=== PATIENT | female | born 1935 | race Asian ===

== ENCOUNTER 2017-05-07 14:50 | Inpatient (IN) | payer MEDICARE, MEDICAID ==
[~2017-05-07] VITALS: Ht 154.9 cm; Wt 63.5 kg
[2017-05-07 15:20] VITALS: BP 127/79
[2017-05-07] MEDS ORDERED: Norco 7.5mg/325mg tab ORAL ONE (15:45)
--- NOTE | 2017-05-07 16:41 | Diagnostic Imaging Report ---
Indication: Pain Findings: 3 views of the left wrist were obtained. Severe comminuted fracture of the distal radius with impaction and intra-articular extension noted. Fracture of the distal ulna also demonstrated as well as fracture of the ulnar styloid. Soft tissue swelling is present. Impression: Acute fractures as discussed above
[2017-05-07] MEDS ORDERED: ceFAZolin 1gm/50ml Premix 50 ML IV ONE (16:45)
[2017-05-07] MEDS ORDERED: Morphine Sulfate 4mg/ml Inj IVP ONE ×3 (16:45→17:30)
[2017-05-07] MEDS ORDERED: ASPIR 8181 MG ORAL (17:10)
[2017-05-07] MEDS ORDERED: ceFAZolin 1gm in D5W 55ml IVPB ONE (17:30)
[2017-05-07] MEDS ORDERED: Lidocaine 1% Plain 30 ml INJ ONE (17:30)
[2017-05-07] MEDS ORDERED: LORazepam Inj 2mg/ml 1ml IV PRN (18:30)
[2017-05-07] MEDS ORDERED: Miralax 17gm pkt ORAL PRN (18:30)
[2017-05-07] MEDS ORDERED: Zolpidem 5mg tab ORAL PRN (18:30)
[2017-05-07] MEDS ORDERED: Mylanta II UD 30ml ORAL PRN (18:30)
[2017-05-07] MEDS ORDERED: Metoclopramide 10mg/2ml Inj IVP ONE (19:15)
[2017-05-07 19:33] LABS: PROTHROMBIN TIME 10.7 SEC (9.30-11.50)
--- NOTE | 2017-05-07 19:33 | Emergency Room Report ---
History of Present Illness General Chief Complaint: Upper Extremity Injury Source: Patient Present Illness HPI 82-year-old female presents to the emergency department complaining of left wrist pain 10/10 in severity, status post mechanical fall. Patient was starting to lose her balance as she sat down quickly and when she placed her left hand behind her to sit down she sustained injury pain and deformity to the left wrist. Patient also reports bleeding. Patient denies hitting her head she denies dyspnea she denies loss of consciousness. Patient has a history of high blood pressure. Denies numbness or tingling in the extremity. denies dizziness, CP, LOC, tenderness or bruises elsewhere. pt. denies palpitations. Son is accompanying pt. and states she is behaving and responding normally. no changes in behavior or mentation. Allergies: Coded Allergies: No Known Allergies (Unverified , 05/07/17) Patient History Past Medical History: see triage record Past Surgical History: none Pertinent Family History: none Last Menstrual Period: na Reviewed Nursing Documentation: PMH: Agreed, PSxH: Agreed Nursing Documentation-PMH Past Medical History: No History, Except For Hx Hypertension: Yes Review of Systems All Other Systems: negative except mentioned in HPI Physical Exam Vital Signs Date Time Temp Pulse Resp B/P (MAP) Pulse Ox O2 Delivery O2 Flow Rate FiO2 05/07/17 15:07 97.5 57 16 114/69 98 Room Air Sp02 EP Interpretation: reviewed, normal General Appearance: no apparent distress, alert, GCS 15, non-toxic Head: normocephalic, atraumatic Eyes: bilateral eye normal inspection, bilateral eye PERRL ENT: hearing grossly normal, normal voice Neck: full range of motion, no bony tend, supple/symm/no masses Respiratory: chest non-tender, lungs clear, normal breath sounds, speaking full sentences Cardiovascular #1: regular rate, rhythm, normal capillary refill Cardiovascular #2: 2+ radial (R), 2+ radial (L) Gastrointestinal: non tender, soft Rectal: deferred Musculoskeletal: back normal, gait/station normal, normal range of motion, tender - TTP with obvious deformity to the left wrist, pt. is NVI, laceration inline with deformity suspicious for open fracture. Neurologic: alert, oriented x3, responsive, motor strength/tone normal, sensory intact, normal gait, speech normal Skin: normal color, no rash, warm/dry, well hydrated, laceration - laceration to the left lateral wrist radiating to the volar aspect. approx 1.5 inches. Medical Decision Making PA Attestation Dr. Felix is my supervising Physician whom patient management has been discussed with. Diagnostic Impression: Primary Impression: Open wrist fracture Qualified Codes: S62.102B - Fracture of unspecified carpal bone, left wrist, initial encounter for open fracture Additional Impression: History of hypertension ER Course 82-year-old female presents to the emergency department complaining of left wrist pain 10/10 in severity, status post mechanical fall. Patient was starting to lose her balance as she sat down quickly and when she placed her left hand behind her to sit down she sustained injury pain and deformity to the left wrist. Patient also reports bleeding. Patient denies hitting her head she denies dyspnea she denies loss of consciousness. Patient has a history of high blood pressure. Denies numbness or tingling in the extremity. denies dizziness, CP, LOC, tenderness or bruises elsewhere. pt. denies palpitations. Son is accompanying pt. and states she is behaving and responding normally. no changes in behavior or mentation. Ddx considered but are not limited to Fracture, dislocation, contusion, Sprain/ Strain/Spasm, Epidural abscess, Neoplastic mets. Vital signs: are WNL, pt. is afebrile H&PE are most consistent with musculoskeletal injury will perform imaging to r/ o fractures/dislocations. ORDERS: - X-ray: Left wrist comminuted fractures of distal radius and ulna -EK NSR no acute ST changes , QT prolongation - Per Dr. Felix, interpretation scribed by LAURA Bhatt -CXR: lateral deviation of trachea in the middle, calcified and tortuous Aorta. -CBC: mild anemia -CMP: WNL -PT/PTT:WNL ED INTERVENTIONS: - [place] Po - IV access - 1 gram Ancef IV -IV morphine total of 4 -Zofran IV -Volar left wrist Splint applied by field technical assistant. Pt. remains neurovascularly intact. Dr. Puentes, (client application support specialist) was contacted and will do surgery on patient tomorrow, He requested that the patient be placed n.p.o. after midnight. DISPOSITION: at this time pt. will be admitted to Dr. Hays for Open wrist fracture Dr. Hays agreed to admit the pt. and to continue pt. care management. Labs Test 05/07/17 18:40 White Blood Count 10.0 K/UL (4.8-10.8) Red Blood Count 3.97 M/UL (4.20-5.40) Hemoglobin 11.9 G/DL (12.0-16.0) Hematocrit 38.6 % (37.0-47.0) Mean Corpuscular Volume 97 FL (80-99) Mean Corpuscular Hemoglobin 29.9 PG (27.0-31.0) Mean Corpuscular Hemoglobin Concent 30.7 G/DL (32.0-36.0) Red Cell Distribution Width 11.9 % (11.6-14.8) Platelet Count 161 K/UL (150-450) Mean Platelet Volume 8.1 FL (6.5-10.1) Neutrophils (%) (Auto) 81.5 % (45.0-75.0) Lymphocytes (%) (Auto) 14.2 % (20.0-45.0) Monocytes (%) (Auto) 3.7 % (1.0-10.0) Eosinophils (%) (Auto) 0.1 % (0.0-3.0) Basophils (%) (Auto) 0.5 % (0.0-2.0) Prothrombin Time 10.7 SEC (9.30-11.50) Prothromb Time International Ratio 1.0 (0.9-1.1) Activated Partial Thromboplast Time 23 SEC (23-33) Sodium Level 142 MMOL/L (136-145) Potassium Level 3.8 MMOL/L (3.5-5.1) Chloride Level 105 MMOL/L (98-107) Carbon Dioxide Level 27 MMOL/L (21-32) Anion Gap 10 mmol/L (5-15) Blood Urea Nitrogen 12 mg/dL (7-18) Creatinine 1.0 MG/DL (0.55-1.30) Estimat Glomerular Filtration Rate mL/min (>60) Glucose Level 180 MG/DL (74-106) Calcium Level 8.4 MG/DL (8.5-10.1) EKG Diagnostic Results EP Interpretation: Dr. Felix Rate: normal - 64 bpm Rhythm: NSR ST Segments: no acute changes Other Impression Scribed by LAURA BHATT ASA given to the pt in ED: No Chest X-Ray Diagnostic Results Chest X-Ray Diagnostic Results : Chest X-Ray Ordered: Yes # of Views/Limited/Complete: 1 View Indication: Other - Pre-op EP Interpretation: Yes PA Xray: Interpretation reviewed, by supervising MD, and agrees with findings. Interpretation: no consolidation, no effusion, no pneumothorax, other - lateral deviation of trachea in the middle, calcified and tortuous Aorta. Impression: No acute disease Electronically Signed by: Christnie Bhatt PA-C Last Vital Signs Date Time Temp Pulse Resp B/P (MAP) Pulse Ox O2 Delivery O2 Flow Rate FiO2 05/07/17 15:20 97.3 59 18 127/79 96 Room Air Disposition: ADMITTED INPATIENT Condition: Serious Referrals: NOT CHOSEN IPA/,REFERRING (PCP) Christine Bhatt May 07, 2017 19:33
[2017-05-07 20:19] VITALS: BP 147/72
--- NOTE | 2017-05-07 20:20 | History and Physical ---
History of Present Illness General Date patient seen: May 07, 2017 Time patient seen: 20:20 Reason for Hospitalization: Upper Extremity Injury Present Illness HPI 82y/o female with pmh of HTN, HLD who presents with L wrist pain s/p mechanical fall. Patient was starting to lose her balance as she sat down quickly and when she placed her left hand behind her to sit down she sustained injury w/ immediate pain and deformity to the left wrist. Patient also reports bleeding. Patient denies hitting her head or LOC. Denies chest pain, SOB, f/c, n/v, d/c , abd ford. Denies other injuries. Son is accompanying pt. and states she is behaving and responding normally. No changes in behavior or mentation. In ED, pt found to have L open distal radius and ulna fracture. Surgery consulted w/ plan for OR tomorrow. Allergies: Coded Allergies: No Known Allergies (Unverified , 05/07/17) Medication History Scheduled Aspirin* (Aspir 81*), 81 MG ORAL DAILY, (Reported) Patient History History Provided By: Patient, Family Member, Medical Record, EMS Healthcare decision maker Resuscitation status Advanced Directive on File Past Medical/Surgical History Past Medical/Surgical History: (1) HTN (hypertension) (2) HLD (hyperlipidemia) (3) L open distal radius and ulna fracture Family History Family History: Patient reports no known family medical history. Social History Social History: (1) No significant social history Review of Systems ROS Narrative CONSTITUTIONAL: No weight loss, fever, chills, weakness or fatigue. HEENT: Eyes: No visual loss, blurred vision, double vision or yellow sclerae. Ears, Nose, Throat: No hearing loss, sneezing, congestion, runny nose or sore throat. SKIN: No rash or itching. CARDIOVASCULAR: No chest pain, chest pressure or chest discomfort. No palpitations or edema. RESPIRATORY: No shortness of breath, cough or sputum. GASTROINTESTINAL: No anorexia, nausea, vomiting or diarrhea. No abdominal pain or blood. NEUROLOGICAL: No headache, dizziness, syncope, paralysis, ataxia, numbness or tingling in the extremities. No change in bowel or bladder control. MUSCULOSKELETAL: No muscle, back pain, joint pain or stiffness. HEMATOLOGIC: No anemia, bleeding or bruising. LYMPHATICS: No enlarged nodes. No history of splenectomy. PSYCHIATRIC: No history of depression or anxiety. ENDOCRINOLOGIC: No reports of sweating, cold or heat intolerance. No polyuria or polydipsia. ALLERGIES: No history of asthma, hives, eczema or rhinitis. Physical Exam Physical Exam Narrative General Appearance: no apparent distress, alert, GCS 15, non-toxic Head: normocephalic, atraumatic Eyes: bilateral eye normal inspection, bilateral eye PERRL ENT: hearing grossly normal, normal voice Neck: full range of motion, no bony tend, supple/symm/no masses Respiratory: chest non-tender, lungs clear, normal breath sounds, speaking full sentences Cardiovascular #1: regular rate, rhythm, normal capillary refill Cardiovascular #2: 2+ radial (R), 2+ radial (L) Gastrointestinal: non tender, soft Rectal: deferred Musculoskeletal: back normal, gait/station normal, normal range of motion, tender - TTP with obvious deformity to the left wrist, pt. is NVI, laceration inline with deformity suspicious for open fracture. Neurologic: alert, oriented x3, responsive, motor strength/tone normal, sensory intact, normal gait, speech normal Skin: normal color, no rash, warm/dry, well hydrated, laceration - laceration to the left lateral wrist radiating to the volar aspect. approx 1.5 inches. Last 24 Hour Vital Signs Date Time Temp Pulse Resp B/P (MAP) Pulse Ox O2 Delivery O2 Flow Rate FiO2 05/07/17 15:20 97.3 59 18 127/79 96 Room Air 05/07/17 15:07 97.5 57 16 114/69 98 Room Air Intake and Output 05/07/17 05/08/17 19:00 07:00 Intake Total 55 ml Balance 55 ml Intake IV Total 55 ml Laboratory Tests Test 05/07/17 18:40 Prothrombin Time 10.7 SEC (9.30-11.50) Prothromb Time International Ratio 1.0 (0.9-1.1) Activated Partial Thromboplast Time 23 SEC (23-33) Height (Feet): 5 Height (Inches): 1.00 Weight (Pounds): 125 Medications Current Medications Medications (Trade) Dose Ordered Sig/Damon Route PRN Reason Start Time Stop Time Status Last Admin Dose Admin Acetaminophen (Tylenol) 650 mg Q4H PRN ORAL fever 05/07/17 18:30 06/06/17 18:29 Al Hydroxide/Mg Hydroxide (Mylanta II) 30 ml Q6H PRN ORAL dyspepsia 05/07/17 18:30 06/06/17 18:29 Aspirin (Ecotrin) 81 mg DAILY ORAL 05/08/17 09:00 06/07/17 08:59 Cefazolin Sodium 50 ml @ 100 mls/hr Q8HR IV 05/08/17 06:00 05/15/17 05:59 UNV Dextrose (Dextrose 50%) STAT PRN IV Hypoglycemia 05/07/17 18:30 06/06/17 18:29 Lorazepam (Ativan 2mg/ml 1ml) 0.5 mg Q4H PRN IV For Anxiety 05/07/17 18:30 05/14/17 18:29 Ondansetron HCl (Zofran) 4 mg Q6H PRN IVP Nausea & Vomiting 05/07/17 18:30 06/06/17 18:29 Polyethylene Glycol (Miralax) 17 gm HSPRN PRN ORAL Constipation 05/07/17 18:30 06/06/17 18:29 Zolpidem Tartrate (Ambien) 5 mg HSPRN PRN ORAL Insomnia 05/07/17 18:30 05/14/17 18:29 Assessment/Plan Problem List: (1) s/p mechanical fall (2) L open distal radius and ulna fracture (3) HTN (hypertension) ICD Codes: I10 - Essential (primary) hypertension SNOMED: 46690168 (4) HLD (hyperlipidemia) ICD Codes: E78.5 - Hyperlipidemia, unspecified SNOMED: 65986720 Status: stable Assessment/Plan Admit inpt Ortho surgery consulted NPO at [place] for OR tomorrow for ORIF Empiric ancef Pain control, bowel regimen Supportive care Pt/family to bring in home med list Based on the patient's medical history, and other available ancillary data, the patient is a LOW risk for an INTERMEDIATE risk procedure. Per the most recent ACC/AHA guidelines, the patient does not need any further cardiopulmonary testing prior to the procedure and there do not appear to be any clear medical contraindications to proceeding with the proposed procedure. DVT Prophylaxis: SCD Code Status: Full Hospital Classification Declaration: Based on this initial evaluation, and depending on the patient's clinical course, I anticipate that this patient will require hospitalization for 2-3 days for surgical mgmt and close respiratory/ hemodynamic monitoring. Disposition: Once the patient is stable to leave the hospital, I anticipate the patient will likely be discharged to the following environment: home with HH vs SNF I spent 70 minutes on this patient's case, and 40 minutes were dedicated to counseling and/or care coordination. Discussed with patient/family, nursing staff, SW/CM, ortho regarding clinical status, treatment course, and disposition planning. Time of note may not reflect time of encounter. Lance Cyr M.D. May 07, 2017 20:20
[2017-05-07 20:32] LABS: BASOPHILS % (AUTO) 0.5 % (0.0-2.0); EOSINOPHILS % (AUTO) 0.1 % (0.0-3.0); LYMPHOCYTES % (AUTO) 14.2 % (20.0-45.0); MEAN CORPUSCULAR HEMOGLOBIN 29.9 PG (27.0-31.0); MEAN CORPUSCULAR HGB CONC 30.7 G/DL (32.0-36.0); MEAN CORPUSCULAR VOLUME 97 FL (80-99); MEAN PLATELET VOLUME 8.1 FL (6.5-10.1); MONOCYTES % (AUTO) 3.7 % (1.0-10.0); NEUTROPHILS % (AUTO) 81.5 % (45.0-75.0); PLATELET COUNT 161 K/UL (150-450); RED BLOOD COUNT 3.97 M/UL (4.20-5.40); RED CELL DISTRIBUTION WIDTH 11.9 % (11.6-14.8)
[2017-05-07 20:40] LABS: ANION GAP 10 mmol/L (5-15); CALCIUM 8.4 MG/DL (8.5-10.1); CARBON DIOXIDE 27 MMOL/L (21-32); CHLORIDE 105 MMOL/L (98-107); POTASSIUM 3.8 MMOL/L (3.5-5.1); SODIUM 142 MMOL/L (136-145)
[2017-05-07] MEDS: ceFAZolin 1gm in D5W 55ml IVPB SCH (23:08)
[2017-05-07 23:56] VITALS: BP 145/73
[2017-05-08] VITALS (12 sets, daily range): BP systolic 114–141; BP diastolic 55–100
[2017-05-08] MEDS: ceFAZolin 1gm in D5W 55ml IVPB SCH ×2 (05:28→14:00)
[2017-05-08] MEDS ORDERED: ceFAZolin 1gm/50ml Premix 50 ML IV SCH ×2 (06:00→22:00)
[2017-05-08 07:15] LABS: BASOPHILS % (AUTO) 0.4 % (0.0-2.0); LYMPHOCYTES % (AUTO) 12.2 % (20.0-45.0); MEAN CORPUSCULAR HEMOGLOBIN 29.9 PG (27.0-31.0); MEAN CORPUSCULAR HGB CONC 30.3 G/DL (32.0-36.0); MEAN CORPUSCULAR VOLUME 99 FL (80-99); MEAN PLATELET VOLUME 7.4 FL (6.5-10.1); MONOCYTES % (AUTO) 4.6 % (1.0-10.0); NEUTROPHILS % (AUTO) 82.8 % (45.0-75.0); PLATELET COUNT 139 K/UL (150-450); RED BLOOD COUNT 3.51 M/UL (4.20-5.40); RED CELL DISTRIBUTION WIDTH 11.8 % (11.6-14.8); WHITE BLOOD COUNT 9.4 K/UL (4.8-10.8)
[2017-05-08 07:45] LABS: ALANINE AMINOTRANSFERASE 20 U/L (12-78); ALBUMIN/GLOBULIN RATIO 1.1 (1.0-2.7); ANION GAP 9 mmol/L (5-15); ASPARTATE AMINO TRANSFERASE 22 U/L (15-37); CARBON DIOXIDE 28 MMOL/L (21-32); CHLORIDE 106 MMOL/L (98-107); CREATININE 0.7 MG/DL (0.55-1.30); POTASSIUM 4.2 MMOL/L (3.5-5.1); SODIUM 142 MMOL/L (136-145); TOTAL PROTEIN 6.7 G/DL (6.4-8.2)
[2017-05-08 07:50] LABS: CHOLESTEROL 160 MG/DL (< 200); CHOLESTEROL/HDL RATIO 2.4 (3.3-4.4)
[2017-05-08] MEDS: Aspirin EC 81mg tab ORAL SCH (09:32)
[2017-05-08] MEDS ORDERED: Norco 5mg/325mg tab ORAL PRN ×2 (10:00→14:15)
[2017-05-08] MEDS ORDERED: Norco 10mg/325mg tab ORAL PRN (10:00)
[2017-05-08] MEDS ORDERED: NeoSporin Gu Irrig 1ml Amp IRRIG ONE ×2 (10:47→17:33)
[2017-05-08] MEDS ORDERED: Bupivacaine 0.25% Inj 30ml INJ ONE (10:47)
[2017-05-08] MEDS ORDERED: Bacitracin 50000 Units Vial ONE ×2 (10:47→17:33)
--- NOTE | 2017-05-08 12:51 | Diagnostic Imaging Report ---
Indication: Dyspnea Comparison: None A single view chest radiograph was obtained. Findings: No definite infiltrate or pulmonary vascular congestion identified. The heart is enlarged. The aorta is mildly enlarged consistent with atherosclerotic vascular disease. The bones are osteopenic. Impression: No acute disease
[2017-05-08] MEDS ORDERED: Ropivacaine 5mg/ml Vial 30ml INJ ONE (13:48)
[2017-05-08] MEDS ORDERED: LR 1000ml 1,000 ML IVLG SCH (14:05)
--- NOTE | 2017-05-08 14:11 | Anethesia Preoperative Eval ---
Anesthesia Pre-op PMH/ROS General Date of Evaluation: May 08, 2017 Time of Evaluation: 14:26 Anesthesiologist: Cassandra ASA Score: ASA 3 Mallampati Score Class I : Soft palate, uvula, fauces, pillars visible Class II: Soft palate, uvula, fauces visible Class III: Soft palate, base of uvula visible Class IV: Only hard plate visible Mallampati Classification: Class II Surgeon: Dhaval Diagnosis: L Wrist Fx Surgical Procedure: L Disal Radius/Ulnar ORIF Anesthesia History: none Family History: no anesthesia problems Allergies: Coded Allergies: No Known Allergies (Unverified , 05/07/17) Medications: see eMAR Past Medical History Cardiovascular: Reports: HTN, other - HL Hematology/Immune: Reports: anemia Anesthesia Pre-op Phys. Exam Physician Exam Last Vital Signs Date Time Temp Pulse Resp B/P (MAP) Pulse Ox O2 Delivery O2 Flow Rate FiO2 05/08/17 12:06 98.3 60 19 123/100 97 Room Air Constitutional: NAD Neurologic: CN 2-12 intact Cardiovascular: RRR Respiratory: CTA Gastrointestinal: S/NT/ND Airway Exam Mallampati Score: Class II MO: limited ROM: limited Teeth: intact Anesthesia Pre-op A/P Labs Hematology Test 05/07/17 18:40 05/08/17 05:40 White Blood Count 10.0 K/UL (4.8-10.8) 9.4 K/UL (4.8-10.8) Red Blood Count 3.97 M/UL (4.20-5.40) L 3.51 M/UL (4.20-5.40) L Hemoglobin 11.9 G/DL (12.0-16.0) L 10.5 G/DL (12.0-16.0) L Hematocrit 38.6 % (37.0-47.0) 34.6 % (37.0-47.0) L Mean Corpuscular Volume 97 FL (80-99) 99 FL (80-99) Mean Corpuscular Hemoglobin 29.9 PG (27.0-31.0) 29.9 PG (27.0-31.0) Mean Corpuscular Hemoglobin Concent 30.7 G/DL (32.0-36.0) L 30.3 G/DL (32.0-36.0) L Red Cell Distribution Width 11.9 % (11.6-14.8) 11.8 % (11.6-14.8) Platelet Count 161 K/UL (150-450) 139 K/UL (150-450) L Mean Platelet Volume 8.1 FL (6.5-10.1) 7.4 FL (6.5-10.1) Neutrophils (%) (Auto) 81.5 % (45.0-75.0) H 82.8 % (45.0-75.0) H Lymphocytes (%) (Auto) 14.2 % (20.0-45.0) L 12.2 % (20.0-45.0) L Monocytes (%) (Auto) 3.7 % (1.0-10.0) 4.6 % (1.0-10.0) Eosinophils (%) (Auto) 0.1 % (0.0-3.0) 0.0 % (0.0-3.0) Basophils (%) (Auto) 0.5 % (0.0-2.0) 0.4 % (0.0-2.0) Coagulation Test 05/07/17 18:40 Prothrombin Time 10.7 SEC (9.30-11.50) Prothromb Time International Ratio 1.0 (0.9-1.1) Activated Partial Thromboplast Time 23 SEC (23-33) Chemistry Test 05/07/17 18:40 05/08/17 05:40 Sodium Level 142 MMOL/L (136-145) 142 MMOL/L (136-145) Potassium Level 3.8 MMOL/L (3.5-5.1) 4.2 MMOL/L (3.5-5.1) Chloride Level 105 MMOL/L (98-107) 106 MMOL/L (98-107) Carbon Dioxide Level 27 MMOL/L (21-32) 28 MMOL/L (21-32) Anion Gap 10 mmol/L (5-15) 9 mmol/L (5-15) Blood Urea Nitrogen 12 mg/dL (7-18) 14 mg/dL (7-18) Creatinine 1.0 MG/DL (0.55-1.30) 0.7 MG/DL (0.55-1.30) Estimat Glomerular Filtration Rate mL/min (>60) mL/min (>60) Glucose Level 180 MG/DL (74-106) H 132 MG/DL (74-106) H Calcium Level 8.4 MG/DL (8.5-10.1) L 8.0 MG/DL (8.5-10.1) L Total Bilirubin 0.5 MG/DL (0.2-1.0) Aspartate Amino Transf (AST/SGOT) 22 U/L (15-37) Alanine Aminotransferase (ALT/SGPT) 20 U/L (12-78) Alkaline Phosphatase 68 U/L (46-116) Total Protein 6.7 G/DL (6.4-8.2) Albumin 3.5 G/DL (3.4-5.0) Globulin 3.2 g/dL Albumin/Globulin Ratio 1.1 (1.0-2.7) Triglycerides Level 25 MG/DL (0-200) Cholesterol Level 160 MG/DL (< 200) LDL Cholesterol 89 mg/dL (<100) HDL Cholesterol 68 MG/DL (40-60) H Cholesterol/HDL Ratio 2.4 (3.3-4.4) L Thyroid Stimulating Hormone (TSH) 0.950 uiU/mL (0.360-3.740) Risk Assessment & Plan Assessment: ASA 3 Plan: GA, BIS, L Supraclavicular Block Status Change Before Surgery: No Pre-Antibiotics Dru Gram Ancef IV Given Within 1 Hr of Incision: Yes Time Given: 14:48 Gilberto Trujillo MD May 08, 2017 14:11
--- NOTE | 2017-05-08 14:12 | Immediate Post-Op Evaluation ---
Immediate Post-Op Evalulation Immediate Post-Op Evalulation Procedure: L Disal Radius/Ulnar ORIF Date of Evaluation: May 08, 2017 Time of Evaluation: 17:45 IV Fluids: 800 LR Blood Products: 0 Estimated Blood Loss: 50 Urinary Output: 0 Blood Pressure Systolic: 131 Blood Pressure Diastolic: 58 Pulse Rate: 60 Respiratory Rate: 16 O2 Sat by Pulse Oximetry: 100 Temperature (Fahrenheit): 97.4 Pain Score (1-10): 2 Nausea: No Vomiting: No Complications 0 Patient Status: awake, reacts, patent, extubated, none Hydration Status: adequate Dru Gram Ancef IV Given Within 1 Hr of Incision: Yes Time Given: 14:48 Gilberto Trujillo MD May 08, 2017 14:12
[2017-05-08] MEDS ORDERED: oxyCODONE HCL/Acetaminophen 5/325mg ORAL PRN (14:15)
[2017-05-08] MEDS ORDERED: Norco 7.5mg/325mg tab ORAL PRN (14:15)
[2017-05-08] MEDS ORDERED: Hydromorphone 0.5mg/0.5ml inj IVP PRN (14:15)
[2017-05-08] MEDS ORDERED: LORazepam Inj 2mg/ml 1ml IV PRN (14:15)
[2017-05-08] MEDS ORDERED: Ketorolac 30mg Inj IV PRN (14:15)
[2017-05-08] MEDS ORDERED: Midazolam 2mg/2ml Inj IVP PRN ×2 (14:15→19:00)
[2017-05-08] MEDS ORDERED: fentaNYL 100 mcg/2 mL IV PRN (14:15)
[2017-05-08] MEDS ORDERED: Atropine Inj 1mg/10ml Syr IV PRN (14:15)
[2017-05-08] MEDS ORDERED: DiphenhydrAMINE 50mg/ml Inj IVP PRN (14:15)
[2017-05-08] MEDS ORDERED: Metoclopramide 10mg/2ml Inj IVP PRN (14:15)
[2017-05-08] MEDS ORDERED: Ketorolac 60mg Inj IM PRN (14:15)
[2017-05-08] MEDS ORDERED: Lidocaine 1% MPF 10mg/ml 5ml ONE (14:26)
[2017-05-08] MEDS ORDERED: Propofol 200mg/20ml IV ONE (14:26)
[2017-05-08] MEDS ORDERED: Glycopyrrolate 0.2mg/ml 1ml Vial ONE (14:26)
[2017-05-08] MEDS ORDERED: Metoprolol 5mg/5ml Inj ONE (14:26)
[2017-05-08] MEDS ORDERED: Midazolam 2mg/2ml Inj ONE (14:26)
[2017-05-08] MEDS ORDERED: NS Irrig 2000ml IRRIG ONE (14:30)
[2017-05-08] MEDS ORDERED: fentaNYL 100 mcg/2 mL IV ONE (14:30)
--- NOTE | 2017-05-08 17:30 | Pre-Procedure Note/Attestation ---
Pre-Procedure Note/Attestation Complete Prior to Procedure Planned Procedure: left Procedure Narrative: Distal radius and ulna ORIF with I and D Indications for Procedure Pre-Operative Diagnosis: Left Grade 1 Open distal radius and ulna fracture Attestation I attest that I discussed the nature of the procedure; its benefits; risks and complications; and alternatives (and the risks and benefits of such alternatives ), prior to the procedure, with the patient (or the patient's legal sales account representative). I attest that, if there was a reasonable possibility of needing a blood transfusion, the patient (or the patient's legal sales account representative) was given the [place] [employer] standardized written summary, pursuant to the Demond Armando Blood Safety Act ([place] Health and Safety Code # 1645, as amended). I attest that I re-evaluated the patient just prior to the surgery and that there has been no change in the patient's H&P, except as documented below: THADDEUS GRANADOS May 08, 2017 17:30
--- NOTE | 2017-05-08 17:31 | Brief Operative Note ---
Immediate Post Operative Note Operative Note Pre-op Diagnosis: Left Grade 1 Open distal radius and ulna fracture Procedure: Left distal radius and ulna I and D with ORIF Post-op Diagnosis: same as pre-op Findings: consistent w/pre-op dx studies Surgeon: Dhaval Anesthesiologist: Cassandra Anesthesia: general, regional Specimen: none Complications: none Condition: stable Fluids: 100 ml Estimated Blood Loss: minimal Drains: none Tourniquet time: 92 - min Implant(s) used?: Yes THADDEUS GRANADOS May 08, 2017 17:31
[2017-05-08] MEDS: LR 1000ml 1,000 ML IV SCH (19:49)
--- NOTE | 2017-05-08 21:36 | General Progress Note ---
Assessment/Plan Problem List: (1) s/p mechanical fall (2) L open distal radius and ulna fracture (3) HTN (hypertension) ICD Codes: I10 - Essential (primary) hypertension SNOMED: 22715496 (4) HLD (hyperlipidemia) ICD Codes: E78.5 - Hyperlipidemia, unspecified SNOMED: 48256283 Status: stable Assessment/Plan Admit inpt Ortho surgery consulted Empiric ancef s/p Left distal radius and ulna I&D with ORIF on 05/08/17 Post operative recommendations include: - encourage mobilization/ambulation - encourage incentive spirometry to optimize pulmonary hygiene - DVT/GI prophylaxis as appropriate - ctm CBC and hemodynamics - ctm electrolytes, adjust/replete prn - PT/OT - pain control, supportive care, bowel regimen Pt/family to bring in home med list DVT Prophylaxis: SCD Code Status: Full Hospital Classification Declaration: Based on this initial evaluation, and depending on the patient's clinical course, I anticipate that this patient will require hospitalization for 2-3 days for surgical mgmt and close respiratory/ hemodynamic monitoring. Disposition: Once the patient is stable to leave the hospital, I anticipate the patient will likely be discharged to the following environment: home with vs SNF I spent 42 minutes on this patient's case, and 24 minutes were dedicated to counseling and/or care coordination. Discussed with patient/family, nursing staff, SW/CM, ortho regarding clinical status, treatment course, and disposition planning. Time of note may not reflect time of encounter. Subjective Date patient seen: May 08, 2017 Time patient seen: 18:00 ROS Limited/Unobtainable: No Constitutional: Reports: no symptoms HEENT: Reports: no symptoms Cardiovascular: Reports: no symptoms Respiratory: Reports: no symptoms Gastrointestinal/Abdominal: Reports: no symptoms Genitourinary: Reports: no symptoms Neurologic/Psychiatric: Reports: no symptoms Endocrine: Reports: no symptoms Hematologic/Lymphatic: Reports: no symptoms Allergies: Coded Allergies: No Known Allergies (Unverified , 05/07/17) All Systems: reviewed and negative except above Subjective No acute o/n events s/p Left distal radius and ulna I&D with ORIF today POD#1 Pain controlled. Denies f/c, n/v, d/c, chest pain, SOB Objective Last 24 Hour Vital Signs Date Time Temp Pulse Resp B/P (MAP) Pulse Ox O2 Delivery O2 Flow Rate FiO2 11/9/17 20:00 97.6 60 18 114/55 100 Room Air 05/08/17 18:28 97.0 59 15 140/62 100 Nasal Cannula 3.0 05/08/17 18:20 59 16 141/62 100 Nasal Cannula 3.0 05/08/17 18:10 58 13 140/62 100 Nasal Cannula 3.0 05/08/17 18:00 58 12 135/64 100 Nasal Cannula 3.0 05/08/17 17:55 59 12 137/66 99 Simple Mask 6.0 05/08/17 17:50 58 13 131/63 100 Simple Mask 6.0 05/08/17 17:42 61 15 137/63 100 Simple Mask 6.0 05/08/17 17:34 97.4 66 19 131/58 100 Simple Mask 6.0 05/08/17 17:33 60 16 100 05/08/17 12:06 98.3 60 19 123/100 97 Room Air 05/08/17 08:50 98.1 68 19 129/72 97 Room Air 05/08/17 04:00 98.2 60 18 131/68 96 Room Air 05/07/17 23:56 97.7 64 16 145/73 98 Room Air Intake and Output 05/08/17 05/09/17 19:00 07:00 Intake Total 1000 ml Output Total 20 ml Balance 980 ml Intake IV Total 1000 ml Output Estimated Blood Loss 20 ml Laboratory Tests 05/08/17 05:40: White Blood Count 9.4, Red Blood Count 3.51L, Hemoglobin 10.5L, Hematocrit 34.6L , Mean Corpuscular Volume 99, Mean Corpuscular Hemoglobin 29.9, Mean Corpuscular Hemoglobin Concent 30.3L, Red Cell Distribution Width 11.8, Platelet Count 139L, Mean Platelet Volume 7.4, Neutrophils (%) (Auto) 82.8H, Lymphocytes (%) (Auto) 12.2L, Monocytes (%) (Auto) 4.6, Eosinophils (%) (Auto) 0.0, Basophils (%) (Auto) 0.4, Sodium Level 142, Potassium Level 4.2, Chloride Level 106, Carbon Dioxide Level 28, Anion Gap 9, Blood Urea Nitrogen 14, Creatinine 0.7, Estimat Glomerular Filtration Rate , Glucose Level 132H, Calcium Level 8.0L, Total Bilirubin 0.5, Aspartate Amino Transf (AST/SGOT) 22, Alanine Aminotransferase (ALT/SGPT) 20, Alkaline Phosphatase 68, Total Protein 6.7, Albumin 3.5, Globulin 3.2, Albumin/Globulin Ratio 1.1, Triglycerides Level 25, Cholesterol Level 160, LDL Cholesterol 89, HDL Cholesterol 68H, Cholesterol/ HDL Ratio 2.4L, Thyroid Stimulating Hormone (TSH) 0.950 Height (Feet): 5 Height (Inches): 1.00 Weight (Pounds): 140 Objective General: alert, cooperative, no distress, appears stated age Head: normocephalic, without obvious abnormality, atraumatic Eyes: conjunctivae/corneas clear. PERRL, EOM's intact Throat: lips, mucosa, and tongue normal. MMM Neck: supple, symmetrical, trachea midline, and no JVD Lungs: clear to auscultation bilaterally Heart: regular rate and rhythm, S1, S2 normal, no murmur, click, rub or gallop Abdomen: soft, non-tender, non-distended, bowel sounds normal; no masses or organomegaly Extremities: Dressing c/d/i Pulses: 2+ and symmetric Skin: skin color, texture, turgor normal; no rashes or lesions Neurologic: grossly normal, no focal deficits Lance Cyr M.D. May 08, 2017 21:36
[2017-05-08] MEDS: ceFAZolin 1gm in D5W 55ml IVP SCH (22:04)
--- NOTE | 2017-05-08 23:00 | Consultation ---
DATE OF CONSULTATION: 05/08/2017 ORTHOPEDIC CONSULTATION CONSULTING PHYSICIAN: Sohail Puentes M.D. REQUESTING PHYSICIAN: Richa Hays M.D. DIAGNOSIS: Left distal grade 1 open highly comminuted displaced ulna and radius fracture. HISTORY OF PRESENT ILLNESS: The patient is a French speaking 82-year-old [id number] woman, whose history and examination was performed with the assistance of her son, Moshe. She fell today and had no loss of consciousness and sustained the above isolated injury. She has had previous back surgery. She has no known drug allergies. She has a history of hypertension. REVIEW OF SYSTEMS: Fourteen point review of systems is negative. PHYSICAL EXAMINATION: EXTREMITIES: Left upper extremity splinted and protected. Distal neurovascular examination to gross movement of the left upper extremity is intact. She has no elbow or shoulder pain or tenderness. DIAGNOSTIC DATA: Radiographs reveal an extremely comminuted, highly displaced, intraarticular, foreshortened, and angulated distal radius and ulnar fracture. ASSESSMENT AND PLAN: The patient has a reported open wound associated with the fracture. I have recommended irrigation and debridement along with open reduction and internal fixation. She and her son understand that the degree of comminution and intraarticular extension renders anatomic latter-day exceptionally difficult. We will proceed to the operating room when available. Sohail Puentes M.D. DR: Maral JOB#: [id number] CC: CHARY
[2017-05-09] VITALS: BP 129/60
--- NOTE | 2017-05-09 01:45 | Operative Note - Dictated ---
DATE OF OPERATION: 05/08/2017 SURGEON: Sohail Puentes M.D. BOILER TUBE REAMER: None. ANESTHESIA: Regional plus general. COMPLICATIONS: None. ANTIBIOTICS: Ancef. PREOPERATIVE DIAGNOSES: Left grade 1 open distal radius and ulnar fracture with an exceptional degree of comminution, displacement, and intra-articular involvement. POSTOPERATIVE DIAGNOSES: Left grade 1 open distal radius and ulnar fracture with an exceptional degree of comminution, displacement, and intra-articular involvement. PROCEDURE PERFORMED: 1. Left distal radius/ulnar irrigation and debridement with 3 liters of antibiotic impregnated saline wash. 2. Left distal ulnar open reduction and internal fixation using a multi-hole [place] plate from [employer] with both locking and nonlocking screws. 3. Open reduction and internal fixation of distal ulnar shaft fracture using a 4 hole 1/3rd tubular small fragment [employer] plate. 4. Left short arm splinting. BACKGROUND HISTORY: The patient is an 82-year-old woman who sustained a grade 1 open left distal radius and ulnar fracture. All risks, benefits, and alternatives to surgical intervention were discussed in great detail. Risks included, but were not limited to, bleeding, infection, neurovascular injury, need for additional surgical intervention, failure of pain relief, arthrofibrosis, complications of anesthesia, blood clots, stroke, heart attack, and potentially . She understood these risks, amongst others, and consent was signed. PROCEDURE IN DETAIL: The patient was brought into the operating room, placed supine on the operating room table. The left upper extremity was correctly verified for surgical site and prepped and draped in standard sterile fashion. Examination revealed 2 small punctate wounds from the inside out measuring 2 mm at the level of the ulnar fracture. It was therefore determined to be a grade 1 open fracture. Using fluoroscopy, reduction was attempted and could not be made anatomic because of the exceptional degree of comminution. It was made as closely anatomic as possible. Attention was first directed to the distal radius where the distal aspect of Raulito's approach was utilized. Tourniquet was insufflated to 250 mmHg above atmospheric pressure for a period of 92 minutes after Esmarch exsanguination. Dissection was carried down to bone with great care taken to protect neurovascular structures. The fracture was readily identified and highly comminuted. Using appropriate traction and estimation of appropriate inclination, height, and tilt, the distal radius plate was secured into position with locking and nonlocking screws. Copious irrigation was utilized and attention was turned to the ulna. Through a separate incision, the distal ulnar shaft fracture was identified and cleared of hematoma. A 4 hole Glenn 1/3rd tubular plate was secured over the fracture site. Only 2 cortices could be purchased distal to the fracture because of the comminution and how distal the fracture pattern was. Copious irrigation and pulsatile lavage was used with 3 liters of antibiotic impregnated fluid through the open wound and through the distal radius wound and distal ulnar wound. Soft tissues were reapproximated using 0 Vicryl, 2-0 Vicryl, and 3-0 nylon. Dry sterile dressing was applied. A short-arm splint was fashioned and secured into position. The sling was fitted and she was transferred to recovery after tolerating the procedure well. I attest I performed the entire operation. All needle and sponge counts were correct twice. Sohail Puentes M.D. DR: BROOKS JOB#: [id number] CC: CHARY
[2017-05-09 04:00] VITALS: BP 134/60
[2017-05-09] MEDS: ceFAZolin 1gm in D5W 55ml IVP SCH ×3 (05:34→21:22)
[2017-05-09 08:00] VITALS: BP 122/72
[2017-05-09] MEDS: Aspirin EC 81mg tab ORAL SCH (08:13)
[2017-05-09] MEDS: LR 1000ml 1,000 ML IV SCH (08:16)
[2017-05-09] MEDS ORDERED: Tubing IV Secondary IV ONE (11:09)
[2017-05-09] MEDS ORDERED: NS 275ml ONE (11:09)
[2017-05-09] MEDS ORDERED: FUROSEMIDE40 MG ORAL (11:27)
[2017-05-09] MEDS ORDERED: DONEPEZIL HCL5 M2 ORAL (11:27)
[2017-05-09] MEDS ORDERED: ATORVASTATIN CA20 MG ORAL (11:27)
[2017-05-09] MEDS ORDERED: CREON DR 24,001 EACH PO (11:27)
[2017-05-09] MEDS ORDERED: POTASSIUM CHLO20 ME1 ORAL (11:27)
[2017-05-09] MEDS ORDERED: AMLODIPINE BESYL5 MG ORAL (11:27)
[2017-05-09] MEDS ORDERED: CALCITRIOL1 MCG/1 ML PO (11:27)
[2017-05-09 12:00] VITALS: BP 133/57
--- NOTE | 2017-05-09 12:37 | Cardiology Report ---
APPROVED REPORT EXAM: Two-dimensional and M-mode echocardiogram with Doppler and color Doppler. INDICATION Pre-Op M-Mode DIMENSIONS IVSd1.4 (0.7-1.1cm)Left Atrium (MM)4.5 (1.6-4.0cm) LVDd4.8 (3.5-5.6cm)Aortic Root3.2 (2.0-3.7cm) PWd1.2 (0.7-1.1cm)Aortic Cusp Exc.1.5 (1.5-2.0cm) LVDs2.1 (2.5-4.0cm) PWs2.9 cm Normal left ventricular chamber size, systolic function and wall motion. Left ventricular ejection fraction estimated to be 60-65%. Mild left ventricular hypertrophy. No evidence of pericardial effusion. Left and right atrial sizes at upper limits of normal. Right ventricular chamber size is within normal limits. Focal aortic valve sclerosis with adequate cusp excursion. Thickened mitral valve leaflets with normal excursion. Mitral annulus and aortic root calcification. Pulmonic valve not well visualized. Normal tricuspid valve structure. IVC at normal size and collapsing with respiration. A color flow and spectral Doppler study was performed and revealed: No aortic insufficiency. Mild mitral regurgitation. Mitral diastolic velocities suggest reduced left ventricular relaxation c/w mild LV diastolic dysfunction (Grade I). Trace tricuspid regurgitation. Tricuspid systolic velocities suggests peak right ventricular systolic pressure of 28 mmHg, consistent with mild pulmonary hypertension. No pulmonic regurgitation present.
--- NOTE | 2017-05-09 12:56 | Cardiac Electrophysiology PN ---
Subjective Subjective Dictated [id number] Objective Last 24 Hour Vital Signs Date Time Temp Pulse Resp B/P (MAP) Pulse Ox O2 Delivery O2 Flow Rate FiO2 05/09/17 12:00 97.0 59 20 133/57 97 Room Air 05/09/17 08:00 97.6 58 18 122/72 96 Room Air 05/09/17 04:00 97.3 56 18 134/60 97 Room Air 05/09/17 00:00 97.3 59 18 129/60 99 Room Air 05/08/17 20:00 97.6 60 18 114/55 100 Room Air 05/08/17 18:28 97.0 59 15 140/62 100 Nasal Cannula 3.0 05/08/17 18:20 59 16 141/62 100 Nasal Cannula 3.0 05/08/17 18:10 58 13 140/62 100 Nasal Cannula 3.0 05/08/17 18:00 58 12 135/64 100 Nasal Cannula 3.0 05/08/17 17:55 59 12 137/66 99 Simple Mask 6.0 05/08/17 17:50 58 13 131/63 100 Simple Mask 6.0 05/08/17 17:42 61 15 137/63 100 Simple Mask 6.0 05/08/17 17:34 97.4 66 19 131/58 100 Simple Mask 6.0 05/08/17 17:33 60 16 100 Intake and Output 05/09/17 05/10/17 19:00 07:00 Intake Total 465 ml Balance 465 ml Intake Oral 240 ml IV Total 225 ml # Voids 1 VISHAL GUZMAN May 09, 2017 12:56
--- NOTE | 2017-05-09 13:24 | 48 Hour Post Anesthesia Eval ---
Post Anesthesia Evaluation Procedure: L Disal Radius/Ulnar ORIF Date of Evaluation: May 09, 2017 Time of Evaluation: 13:22 Blood Pressure Systolic: 129 0: 74 Pulse Rate: 66 Respiratory Rate: 20 Temperature (Fahrenheit): 97.6 O2 Sat by Pulse Oximetry: 99 Airway: patent Nausea: No Vomiting: No Pain Intensity: 2 Hydration Status: adequate Cardiopulmonary Status: stable Mental Status/LOC: patient returned to baseline Follow-up Care/Observations: n/a Post-Anesthesia Complications: none Follow-up care needed: N/A ALLA LYNNE M.D. May 09, 2017 13:23
--- NOTE | 2017-05-09 13:41 | Diagnostic Imaging Report ---
Indication: Acute fractures Findings: Several fluoroscopic views of the left wrist were obtained. Intraoperative images showing reduction of a distal radius abnormal fracture with a lateral ulnar plate and screws and a T. plate in the distal radius. Impression: Intraoperative imaging
--- NOTE | 2017-05-09 14:07 | Diagnostic Imaging Report ---
APPROVED REPORT CPT Code: 49953 Present Symptoms Comments: R/O DVT BILATERAL: Imaging reveals a patent deep venous system bilaterally. There is no evidence of thrombus within the femoral, popliteal or tibial segments. The greater saphenous veins are also within normal limits. Doppler indicates normal spontaneous flow within these segments.
[2017-05-09] MEDS: Donepezil 5mg Tab ORAL SCH (14:37)
[2017-05-09 16:00] VITALS: BP 133/60
[2017-05-09 20:14] VITALS: BP 138/65
[2017-05-10] VITALS: BP 130/62
--- NOTE | 2017-05-10 00:45 | Consultation ---
DATE OF CONSULTATION: 05/09/2017 CARDIOLOGY CONSULTATION CONSULTING PHYSICIAN: Eduardo Matson M.D. REFERRING PHYSICIAN: Richa Hays M.D. REASON FOR CONSULTATION: Evaluation of hypertension and questionable possible syncope. HISTORY OF PRESENT ILLNESS: The patient is an 82-year-old lady with history of hypertension, hyperlipidemia, and had a fall that resulted in left wrist pain. The patient started to lose her balance and then she put her left hand behind her to sit down and she sustained injury. The patient had immediate deformity and pain in the left wrist. The patient was admitted and subsequently underwent the open reduction internal fixation of the left wrist distal radius and ulnar fracture. Cardiology consultation was obtained for further evaluation and management. PAST MEDICAL HISTORY: 1. Hypertension. 2. Hyperlipidemia. 3. Distal radius and ulnar fracture. FAMILY HISTORY: Noncontributory. SOCIAL HISTORY: She lives at home. Does not smoke or drink alcohol. REVIEW OF SYSTEMS: Review of systems was performed and was negative other than what was mentioned in the history of present illness. PHYSICAL EXAMINATION: VITAL SIGNS: Blood pressure is 133/57, pulse 60, respirations 18, and she is afebrile. HEAD AND NECK: No JVD. LUNGS: Clear. CARDIOVASCULAR: Regular S1 and S2 with no gallop or murmur. ABDOMEN: Soft. EXTREMITIES: Status post surgery of the left wrist. LABORATORY AND DIAGNOSTIC DATA: EKG showed normal sinus rhythm. It is normal electrocardiogram. Labs showed white count of 9.4, hematocrit 10.5, hematocrit 34, and platelet count 139. Sodium 142, potassium 4.2, BUN of 14, and creatinine 0.7. Cholesterol is 68 and LDL is 89. ASSESSMENT AND PLAN: 1. History of hypertension. Blood pressure is currently stable. Hold off on antihypertensive agents. I will just add p.r.n. clonidine at this time. We will also get an echocardiogram to evaluate for ejection fraction and wall motion abnormality. Actually a preliminary echocardiogram showed ejection fraction of 60%-65%. 2. Hyperlipidemia. 3. Status post fall. There is no evidence of loss of consciousness. This was a mechanical fall. There is no evidence of aortic stenosis. 4. Status post fall and distal ulnar and radius fracture, status post open reduction and internal fixation of distal radius and ulna. Thank you very much, Dr. Hays, for allowing me to participate in the care of this patient. Please do not hesitate to contact me for any questions regarding my evaluation. Eduardo Matson M.D. DR: EMILY JOB#: [id number] CC:
[2017-05-10 04:00] VITALS: BP 147/67
[2017-05-10] MEDS: ceFAZolin 1gm in D5W 55ml IVP SCH ×2 (05:24→13:58)
[2017-05-10 07:40] LABS: MEAN CORPUSCULAR HEMOGLOBIN 31.9 PG (27.0-31.0); MEAN CORPUSCULAR HGB CONC 33.3 G/DL (32.0-36.0); MEAN CORPUSCULAR VOLUME 96 FL (80-99); MEAN PLATELET VOLUME 8.4 FL (6.5-10.1); MONOCYTES % (AUTO) 5.8 % (1.0-10.0); NEUTROPHILS % (AUTO) 72.2 % (45.0-75.0); PLATELET COUNT 113 K/UL (150-450); RED BLOOD COUNT 3.21 M/UL (4.20-5.40); RED CELL DISTRIBUTION WIDTH 11.9 % (11.6-14.8); WHITE BLOOD COUNT 8.2 K/UL (4.8-10.8)
[2017-05-10 07:53] LABS: ANION GAP 7 mmol/L (5-15); CALCIUM 7.7 MG/DL (8.5-10.1); CARBON DIOXIDE 25 MMOL/L (21-32); CHLORIDE 112 MMOL/L (98-107); CREATININE 0.7 MG/DL (0.55-1.30); MAGNESIUM 2.3 MG/DL (1.8-2.4); POTASSIUM 4.2 MMOL/L (3.5-5.1); SODIUM 143 MMOL/L (136-145)
[2017-05-10 07:55] VITALS: BP 122/55
--- NOTE | 2017-05-10 08:51 | General Progress Note ---
Assessment/Plan Problem List: (1) s/p mechanical fall (2) L open distal radius and ulna fracture (3) HTN (hypertension) ICD Codes: I10 - Essential (primary) hypertension SNOMED: 76473957 (4) HLD (hyperlipidemia) ICD Codes: E78.5 - Hyperlipidemia, unspecified SNOMED: 72351872 Status: stable Assessment/Plan Ortho surgery consulted Empiric ancef s/p Left distal radius and ulna I&D with ORIF on 05/08/17 Post operative recommendations include: - encourage mobilization/ambulation - encourage incentive spirometry to optimize pulmonary hygiene - DVT/GI prophylaxis as appropriate - ctm CBC and hemodynamics - ctm electrolytes, adjust/replete prn - PT/OT - pain control, supportive care, bowel regimen Cont home meds D/w pt's son who prefers pt going home w/ home health rather than SNF DVT Prophylaxis: SCD Code Status: Full Hospital Classification Declaration: Based on this initial evaluation, and depending on the patient's clinical course, I anticipate that this patient will require hospitalization for 2-3 days for surgical mgmt and close respiratory/ hemodynamic monitoring. Disposition: Once the patient is stable to leave the hospital, I anticipate the patient will likely be discharged to the following environment: home with HH vs SNF I spent 40 minutes on this patient's case, and 22 minutes were dedicated to counseling and/or care coordination. Discussed with patient/family, nursing staff, SW/CM, ortho regarding clinical status, treatment course, and disposition planning. Time of note may not reflect time of encounter. Subjective Date patient seen: May 09, 2017 Time patient seen: 14:00 ROS Limited/Unobtainable: No Constitutional: Reports: no symptoms HEENT: Reports: no symptoms Cardiovascular: Reports: no symptoms Respiratory: Reports: no symptoms Gastrointestinal/Abdominal: Reports: no symptoms Genitourinary: Reports: no symptoms Neurologic/Psychiatric: Reports: no symptoms Endocrine: Reports: no symptoms Hematologic/Lymphatic: Reports: no symptoms Allergies: Coded Allergies: No Known Allergies (Unverified , 05/07/17) All Systems: reviewed and negative except above Subjective No acute o/n events s/p Left distal radius and ulna I&D with ORIF POD#2 Pain controlled. Denies f/c, n/v, d/c, chest pain, SOB Objective Last 24 Hour Vital Signs Date Time Temp Pulse Resp B/P (MAP) Pulse Ox O2 Delivery O2 Flow Rate FiO2 05/10/17 07:55 98.2 66 19 122/55 97 Room Air 05/10/17 04:00 97.3 60 18 147/67 98 Room Air 05/10/17 00:00 97.9 62 18 130/62 95 Room Air 05/09/17 22:19 97.9 05/09/17 20:14 97.9 65 18 138/65 95 Room Air 05/09/17 16:00 97.4 58 18 133/60 98 Room Air 05/09/17 14:37 66 129/74 05/09/17 13:23 66 20 99 05/09/17 12:00 97.0 59 20 133/57 97 Room Air Intake and Output 05/10/17 05/11/17 19:00 07:00 Intake Total 420 ml Balance 420 ml Intake Oral 420 ml Laboratory Tests 05/10/17 06:25: White Blood Count 8.2, Red Blood Count 3.21L, Hemoglobin 10.2L, Hematocrit 30.8L , Mean Corpuscular Volume 96, Mean Corpuscular Hemoglobin 31.9H, Mean Corpuscular Hemoglobin Concent 33.3, Red Cell Distribution Width 11.9, Platelet Count 113L, Mean Platelet Volume 8.4, Neutrophils (%) (Auto) 72.2, Lymphocytes ( %) (Auto) 21.0, Monocytes (%) (Auto) 5.8, Eosinophils (%) (Auto) 0.0, Basophils (%) (Auto) 1.0, Sodium Level 143, Potassium Level 4.2, Chloride Level 112H, Carbon Dioxide Level 25, Anion Gap 7, Blood Urea Nitrogen 18, Creatinine 0.7, Estimat Glomerular Filtration Rate , Glucose Level 101, Calcium Level 7.7L, Magnesium Level 2.3 Height (Feet): 5 Height (Inches): 1.00 Weight (Pounds): 140 Objective General: alert, cooperative, no distress, appears stated age Head: normocephalic, without obvious abnormality, atraumatic Eyes: conjunctivae/corneas clear. PERRL, EOM's intact Throat: lips, mucosa, and tongue normal. MMM Neck: supple, symmetrical, trachea midline, and no JVD Lungs: clear to auscultation bilaterally Heart: regular rate and rhythm, S1, S2 normal, no murmur, click, rub or gallop Abdomen: soft, non-tender, non-distended, bowel sounds normal; no masses or organomegaly Extremities: Dressing c/d/i Pulses: 2+ and symmetric Skin: skin color, texture, turgor normal; no rashes or lesions Neurologic: grossly normal, no focal deficits Lance Cyr M.D. May 10, 2017 08:51
[2017-05-10] MEDS: Aspirin EC 81mg tab ORAL SCH (09:18)
[2017-05-10] MEDS: Donepezil 5mg Tab ORAL SCH (09:18)
[2017-05-10] MEDS ORDERED: LR 1000ml ONE (09:42)
[2017-05-10 11:35] VITALS: BP 136/64
--- NOTE | 2017-05-10 14:02 | Cardiac Electrophysiology PN ---
Assessment/Plan Assessment/Plan 1. Hypertension. Blood pressure is currently stable. On p.r.n. clonidine. Echocardiogram showed ejection fraction of 60%-65%. 2. Hyperlipidemia. 3. Status post fall. There is no evidence of loss of consciousness. This was a mechanical fall. There is no evidence of aortic stenosis. 4. Status post fall and distal ulnar and radius fracture, status post open reduction and internal fixation DW RN Subjective Subjective Comfortable in NAD. Awaiting DC today Objective Last 24 Hour Vital Signs Date Time Temp Pulse Resp B/P (MAP) Pulse Ox O2 Delivery O2 Flow Rate FiO2 05/10/17 11:35 98.4 57 19 136/64 95 Room Air 05/10/17 09:18 66 122/55 05/10/17 07:55 98.2 66 19 122/55 97 Room Air 05/10/17 04:00 97.3 60 18 147/67 98 Room Air 05/10/17 00:00 97.9 62 18 130/62 95 Room Air 05/09/17 22:19 97.9 05/09/17 20:14 97.9 65 18 138/65 95 Room Air 05/09/17 16:00 97.4 58 18 133/60 98 Room Air 05/09/17 14:37 66 129/74 Intake and Output 05/10/17 05/11/17 19:00 07:00 Intake Total 420 ml Balance 420 ml Intake Oral 420 ml Laboratory Tests Test 05/10/17 06:25 White Blood Count 8.2 K/UL (4.8-10.8) Red Blood Count 3.21 M/UL (4.20-5.40) L Hemoglobin 10.2 G/DL (12.0-16.0) L Hematocrit 30.8 % (37.0-47.0) L Mean Corpuscular Volume 96 FL (80-99) Mean Corpuscular Hemoglobin 31.9 PG (27.0-31.0) H Mean Corpuscular Hemoglobin Concent 33.3 G/DL (32.0-36.0) Red Cell Distribution Width 11.9 % (11.6-14.8) Platelet Count 113 K/UL (150-450) L Mean Platelet Volume 8.4 FL (6.5-10.1) Neutrophils (%) (Auto) 72.2 % (45.0-75.0) Lymphocytes (%) (Auto) 21.0 % (20.0-45.0) Monocytes (%) (Auto) 5.8 % (1.0-10.0) Eosinophils (%) (Auto) 0.0 % (0.0-3.0) Basophils (%) (Auto) 1.0 % (0.0-2.0) Sodium Level 143 MMOL/L (136-145) Potassium Level 4.2 MMOL/L (3.5-5.1) Chloride Level 112 MMOL/L (98-107) H Carbon Dioxide Level 25 MMOL/L (21-32) Anion Gap 7 mmol/L (5-15) Blood Urea Nitrogen 18 mg/dL (7-18) Creatinine 0.7 MG/DL (0.55-1.30) Estimat Glomerular Filtration Rate mL/min (>60) Glucose Level 101 MG/DL (74-106) Calcium Level 7.7 MG/DL (8.5-10.1) L Magnesium Level 2.3 MG/DL (1.8-2.4) Objective HEAD AND NECK: No JVD. LUNGS: Clear. CARDIOVASCULAR: Regular S1 and S2 with no gallop or murmur. ABDOMEN: Soft. EXTREMITIES: Status post surgery of the left wrist. VISHAL GUZMAN May 10, 2017 14:02
--- NOTE | 2017-05-10 19:03 | Discharge Summary ---
Discharge Summary Hospital Course Date of Admission May 07, 2017 at 16:52 Date of Discharge May 10, 2017 at 14:38 Admitting Diagnosis open wrist fracture Reason for Hospitalization: open wrist fracture HPI 82y/o female with pmh of HTN, HLD who presents with L wrist pain s/p mechanical fall. Patient was starting to lose her balance as she sat down quickly and when she placed her left hand behind her to sit down she sustained injury w/ immediate pain and deformity to the left wrist. Patient also reports bleeding. Patient denies hitting her head or LOC. Denies chest pain, SOB, f/c, n/v, d/c , abd ford. Denies other injuries. Son is accompanying pt. and states she is behaving and responding normally. No changes in behavior or mentation. In ED, pt found to have L open distal radius and ulna fracture. Surgery consulted w/ plan for OR tomorrow. Consultations Cardiology, Orthopedic surgery Procedures Left distal radius and ulna I&D with [facility] on 05/08/17 Hospital Course Pt was admitted and seen by orthopedic surgery. She was started on IV antibiotics. She underwent left distal radius and ulna I&D with [facility] on . Pt required a few days for wound care, IV antibitoics and pain control. Once cleared by orthopedic surgery, pt was discharged home with family and home health. Discharge physical exam General: alert, cooperative, no distress, appears stated age Head: normocephalic, without obvious abnormality, atraumatic Eyes: conjunctivae/corneas clear. PERRL, EOM's intact Throat: lips, mucosa, and tongue normal. MMM Neck: supple, symmetrical, trachea midline, and no JVD Lungs: clear to auscultation bilaterally Heart: regular rate and rhythm, S1, S2 normal, no murmur, click, rub or gallop Abdomen: soft, non-tender, non-distended, bowel sounds normal; no masses or organomegaly Extremities: LUE dressing c/d/i Pulses: 2+ and symmetric Skin: skin color, texture, turgor normal; no rashes or lesions Neurologic: grossly normal, no focal deficits Discharge Medications Continued Medications: Amlodipine Besylate* (Amlodipine Besylate*) 5 Mg Tablet 5 MG ORAL DAILY, TAB Aspirin* (Aspir 81*) 81 Mg Tablet.dr 81 MG ORAL DAILY, TAB Atorvastatin Calcium* (Atorvastatin Calcium*) 20 Mg Tablet 20 MG ORAL DAILY, TAB Calcitriol (Calcitriol*) 1 Mcg/1 Ml Ampul 0.25 MCG PO DAILY, MCG 0 Refills Donepezil Hcl* (Donepezil Hcl*) 5 Mg Tab.rapdis 5 MG ORAL DAILY, TAB Furosemide* (Lasix*) 40 Mg Tablet 40 MG ORAL DAILY, TAB Lipase/Protease/Amylase (Creon Dr 24,000 Units Capsule) 1 Each Capsule.dr 1 EACH PO TID, CAP Potassium Chloride* (K-Dur*) 20 Meq Tab.er.prt 20 MEQ ORAL DAILY, #7 TAB 0 Refills Discharge Condition Upon Discharge: stable Discharge Disposition Patient was discharged to Home with Home Health(06) Discharge Diagnoses: (1) L open distal radius and ulna fracture (2) s/p mechanical fall (3) HTN (hypertension) (4) HLD (hyperlipidemia) Lance Cyr M.D. May 10, 2017 19:03
--- NOTE | 2017-05-11 23:23 | Discharge Summary ---
Discharge Summary Hospital Course Date of Admission May 07, 2017 at 16:52 Date of Discharge May 10, 2017 at 14:38 Admitting Diagnosis open wrist fracture BRIE Cruz is a 82 year old female who was admitted on May 07, 2017 at 16:52 for Open Wrist Fracture Discharge Discharge Disposition Patient was discharged to Home with Home Health([id number]) Discharge Diagnoses: Lance Cyr M.D. May 11, 2017 23:23
--- NOTE | 2017-05-18 16:26 | Cardiology Report ---
APPROVED REPORT EKG Measurement Heart [id number] [place] [id number] Normal sinus rhythm Normal ECG
== END 2017-05-10 14:38 | disposition home health service (06) | DRG 512 ==
LOC: EMR 15:52 → 3E 16:52 → EDBEDREQ 18:49 → 3E 05-08 20:56
PROC: 0PSL04Z Reposition Left Ulna with Internal Fixation Device, Open Approach (ICD-10-PCS; principal; 2017-05-08 14:00)
PROC: 0PSJ04Z Reposition Left Radius with Internal Fixation Device, Open Approach (ICD-10-PCS; principal; 2017-05-08 14:00)
DX: S52.572A Other intraarticular fracture of lower end of left radius, initial encounter for closed fracture (principal); I10 Essential (primary) hypertension; S52.602A Unspecified fracture of lower end of left ulna, initial encounter for closed fracture; E78.5 Hyperlipidemia, unspecified; W18.39XA Other fall on same level, initial encounter; Y92.89 Other specified places as the place of occurrence of the external cause
CPT/HCPCS: 36415; 71010; 76001; 80048; 80053; 80061; 83735; 84443; 85025; 85610; 85730; 86850; 86900; 86901; 93005; 93306; 93970; 94003; 94150; 99285; J2250; J2405; J2765